=== PATIENT | female | born 1950 | race Caucasian/White ===

== ENCOUNTER → 2020-03-08 10:15 | Outpatient (BNVA) | payer MEDICARE, SELFPAY | PROVIDERS: Family Provider Family Medicine; PCP Family Medicine; Visit Provider Registered Nurse | DX: E03.9 Hypothyroidism, unspecified (principal); E78.2 Mixed hyperlipidemia; I10 Essential (primary) hypertension; Z79.899 Other long term (current) drug therapy | CPT/HCPCS: 80053; 80061; 84443; 85025 ==

== ENCOUNTER 2020-04-18 02:10 | Emergency (ER) | payer MEDICARE, OTHER, SELFPAY ==
[2020-04-18 02:11] VITALS: BP 144/87; PULSE 106; RESP 16; TEMP 36.6; O2SAT 93; BMI 34.0
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
[2020-04-18 02:23] VITALS: RESP 16
[2020-04-18] MEDS: morphine 4 mg/mL SDV 1 mL IVP (02:23)
[2020-04-18] MEDS: ondansetron 2 mg/ML SDV 2 mL 4 MG IVP (02:24)
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
[2020-04-18 03:50] LABS: Basophils # 0.1 10^3/uL (0.0-0.1); Basophils % 0.2 %; Eosinophils % 0.2 %; Hemoglobin 14.7 g/dL (11.5-15.3); Lymphocytes # 3.7 10^3/uL (0.8-4.8); Lymphocytes % 16.5 %; Mean Corpuscular HGB Conc 33.4 g/dL (30.0-36.0); Mean Corpuscular Hemoglobin 30.3 pg (28.0-34.0); Mean Corpuscular Volume 90.7 fL (81-99); Mean Platelet Volume 11.1 fL (7.4-10.4); Monocytes # 1.5 10^3/uL (0.2-0.9); Monocytes % 6.8 %; Neutrophils # 16.99 10^3/uL (1.8-7.7); Neutrophils % 75.9 %; Nucleated Red Blood Cells % 0 %; Platelet Count 425 10^3/cmm (130-400); Red Blood Count 4.85 10^6/uL (4.1-5.3); Red Cell Distribution Width 12.7 % (12.1-15.1); White Blood Count 22.4 10^3/uL (4.0-10.0)
[2020-04-18] MEDS: iohexol 300 mg/mL 100 mL Btl IV (03:59)
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
[2020-04-18 04:14] VITALS: BP 188/103; O2SAT 95
[2020-04-18 04:19] LABS: Alanine Aminotransferase 22 U/L (0-33); Albumin Level 4.3 g/dL (3.5-5.2); Alkaline Phosphatase 92 IU/L (35-105); Blood Urea Nitrogen 14 mg/dL (8-23); Calcium 9.2 mg/dL (8.5-10.5); Carbon Dioxide 20 mmol/L (22-29); Chloride 100 mmol/L (98-107); Globulin 3.4 g/dL (1.3-4.6); Glomerular Filtration Rate 71.3 mL/min (90-130); Glucose 150 mg/dL (65-115); Lipase 40 U/L (13-60); Osmolality Calculated 277 mOsm/kg (285-295); Sodium 134 mmol/L (136-145); Total Bilirubin 0.5 mg/dL (0.15-1.2); Total Protein 7.7 g/dL (6.6-8.7)
[2020-04-18 04:59] LABS: Anion Gap 18.1 (5-19)
[2020-04-18 05:00] LABS: Aspartate Amino Transferase 29 U/L (0-32); Potassium 4.1 mmol/L (3.5-5.1)
[2020-04-18] MEDS: tetanus-dipt-pertussis 0.5 mL SDV IM (05:11)
[2020-04-18 05:13] VITALS: BP 111/69
--- NOTE | 2020-04-19 14:33 | PC.SOCIAL ---
Addendum entered by Roselia Blackwell RN 04/19/20 14:34: Please note records were faxed to [phone] number provided by clinic with confirmation that it was received successfully. Original Note: Spoke with Dr Camp office regarding referral. They will call patient with appointment. Called and updated patient of this as well.
--- NOTE | 2020-04-23 10:16 | DCPLANNER ---
Patient has a follow up appointment scheduled for Sunday, April 24, 2020 at 4:45. Clinic will call patient with appointment information.
--- NOTE | 2020-04-29 15:21 | DCPLANNER ---
Patient did attend appointment scheduled for 04.26.[address] Cisneros.
== END 2020-04-18 05:21 | disposition home or self-care (01) ==
PROVIDERS: Emergency Medicine; Emergency Provider Nurse Practitioner Family; PCP Family Medicine
DX: S02.2XXA Fracture of nasal bones, initial encounter for closed fracture (principal); I10 Essential (primary) hypertension; Z23 Encounter for immunization; Y04.2XXA Assault by strike against or bumped into by another person, initial encounter
CPT/HCPCS: 12345; 70450; 70486; 72125; 74177; 80053; 83690; 85025; 90471; 90715; 96374; 96375; 99282; 99283; J2270; J2405; Q9967

== ENCOUNTER → 2020-04-21 10:48 | Outpatient (BNVA) | payer OTHER, MEDICARE, SELFPAY | PROVIDERS: PCP Family Medicine; Referring Provider Nurse Practitioner Family; Visit Provider Nurse Practitioner Family | DX: S01.512D Laceration without foreign body of oral cavity, subsequent encounter; Y09 Assault by unspecified means; Z01.89 Encounter for other specified special examinations | CPT/HCPCS: 80074; 87806 ==

== ENCOUNTER 2020-06-03 11:41 | Outpatient (CLI) | payer MEDICARE, SELFPAY ==
--- NOTE | 2020-06-03 11:50 | MM_ITS ---
WS: [id number] DIAGNOSTIC LEFT DIGITAL MAMMOGRAM WITH CAD HISTORY: HX OF BREAST CANCER, 12 month follow-up COMPARISON: 05/08/2019 and 04/16/2019 and 04/09/2017 Technique: CC, MLO and ML views. Breast composition: There are scattered areas of fibroglandular density. Biopsy clip near the 12:00 axis of the LEFT breast has been removed since the prior study from the lumpectomy changes. No increa sing mass of soft tissue. Normal postsurgical changes. MM/[place] [id number] IMPRESSION: BI-RADS: 2-Benign FOLLOW UP: 1 Year Follow-up
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
== END 2020-06-03 11:42 | disposition home or self-care (01) ==
LOC: RADSHAW 11:48
PROVIDERS: PCP Family Medicine; Visit Provider Internal Medicine Medical Oncology
DX: Z85.3 Personal history of malignant neoplasm of breast (principal); Z92.21 Personal history of antineoplastic chemotherapy; Z90.11 Acquired absence of right breast and nipple; Z92.23 Personal history of estrogen therapy
CPT/HCPCS: 77065; 87806; 99214

== ENCOUNTER 2020-06-03 11:51 | Outpatient (CLI) | payer MEDICARE, SELFPAY ==
[2020-06-03 14:50] LABS: HIV 1 & 2 Antibody Non-Reactive (Non-Reactiv); HIV 1 & 2 Antigen Non-Reactive (Non-Reactiv)
== END 2020-06-03 11:52 | disposition home or self-care (01) ==
LOC: LAB 11:53
PROVIDERS: PCP Family Medicine; Visit Provider Nurse Practitioner Family
DX: Z77.21 Contact with and (suspected) exposure to potentially hazardous body fluids (principal)
CPT/HCPCS: 87806

== ENCOUNTER → 2020-07-08 09:44 | Outpatient (BNVA) | payer MEDICARE, SELFPAY | PROVIDERS: PCP Family Medicine; Visit Provider Nurse Practitioner Family | DX: Z01.89 Encounter for other specified special examinations (principal); Z20.828 Contact with and (suspected) exposure to other viral communicable diseases; Z20.2 Contact with and (suspected) exposure to infections with a predominantly sexual mode of transmission | CPT/HCPCS: 86705; 86706; 86709; 86803; 87340; 87806 ==

== ENCOUNTER → 2020-08-10 10:48 | Outpatient (BNVA) | payer MEDICARE, SELFPAY | PROVIDERS: PCP Family Medicine; Visit Provider Registered Nurse | DX: Z20.828 Contact with and (suspected) exposure to other viral communicable diseases (principal); J06.9 Acute upper respiratory infection, unspecified | CPT/HCPCS: 87635 ==

== ENCOUNTER → 2021-05-18 09:57 | Outpatient (BNVA) | payer MEDICARE, SELFPAY | PROVIDERS: PCP Registered Nurse; Visit Provider Registered Nurse | DX: G47.34 Idiopathic sleep related nonobstructive alveolar hypoventilation (principal); E03.9 Hypothyroidism, unspecified; E78.5 Hyperlipidemia, unspecified; I10 Essential (primary) hypertension; R25.1 Tremor, unspecified | CPT/HCPCS: 80053; 80061; 84443; 85025 ==

== ENCOUNTER 2021-06-06 09:33 | Outpatient (CLI) | payer MEDICARE, SELFPAY ==
--- NOTE | 2021-06-06 09:44 | MM_ITS ---
WS: [id number] DIAGNOSTIC LEFT DIGITAL MAMMOGRAM WITH CAD HISTORY: HX OF BREAST CA;RT MASTECTOMY COMPARISON: 06/03/2020, 04/16/2019 Technique: CC, MLO and ML views. Breast composition: There are scattered areas of fibroglandular density. No suspicious mass or calci fication. MM/[id number] IMPRESSION: BI-RADS: 1-Negative FOLLOW UP: 1 Year Follow-up
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
== END 2021-06-06 09:34 | disposition home or self-care (01) ==
LOC: ONCMED 09:38
PROVIDERS: PCP Registered Nurse; Visit Provider Internal Medicine Medical Oncology
DX: C50.811 Malignant neoplasm of overlapping sites of right female breast (principal); Z17.0 Estrogen receptor positive status [ER+]; D05.12 Intraductal carcinoma in situ of left breast; Z90.11 Acquired absence of right breast and nipple; Z79.811 Long term (current) use of aromatase inhibitors; I10 Essential (primary) hypertension; E78.5 Hyperlipidemia, unspecified; E11.9 Type 2 diabetes mellitus without complications; Z79.899 Other long term (current) drug therapy; Z92.21 Personal history of antineoplastic chemotherapy
CPT/HCPCS: 77065; 99214

== ENCOUNTER → 2021-06-17 00:01 | Outpatient (BNVA) | payer MEDICARE, SELFPAY | PROVIDERS: PCP Registered Nurse; Visit Provider Registered Nurse | DX: E11.9 Type 2 diabetes mellitus without complications (principal); Z23 Encounter for immunization; G47.30 Sleep apnea, unspecified; R73.9 Hyperglycemia, unspecified; E66.9 Obesity, unspecified; Z71.3 Dietary counseling and surveillance | CPT/HCPCS: 83036 ==

== ENCOUNTER → 2021-11-15 10:21 | Outpatient (BNVA) | payer MEDICARE, SELFPAY | PROVIDERS: PCP Family Medicine; Visit Provider Family Medicine | DX: E11.9 Type 2 diabetes mellitus without complications (principal); I49.9 Cardiac arrhythmia, unspecified | CPT/HCPCS: 83036 ==

== ENCOUNTER 2022-01-02 20:00 | Outpatient (CLI) | payer MEDICARE, SELFPAY | END 2022-01-02 20:01 | disposition home or self-care (01) | LOC: SLEEP 01-03 08:44 | PROVIDERS: PCP Family Medicine; Visit Provider Family Medicine | DX: E66.9 Obesity, unspecified (principal); R06.83 Snoring; G47.61 Periodic limb movement disorder | CPT/HCPCS: 95810 ==

== ENCOUNTER → 2022-02-21 10:00 | Outpatient (BNVA) | payer MEDICARE, SELFPAY | PROVIDERS: PCP Family Medicine; Visit Provider Family Medicine | DX: E11.9 Type 2 diabetes mellitus without complications (principal) | CPT/HCPCS: 83036 ==

== ENCOUNTER → 2022-05-23 14:29 | Outpatient (BNVA) | payer MEDICARE, SELFPAY | PROVIDERS: PCP Family Medicine; Visit Provider Family Medicine | DX: Z00.00 Encounter for general adult medical examination without abnormal findings (principal); E11.9 Type 2 diabetes mellitus without complications; E78.5 Hyperlipidemia, unspecified; E03.9 Hypothyroidism, unspecified; Z12.31 Encounter for screening mammogram for malignant neoplasm of breast | CPT/HCPCS: 80053; 80061; 84443 ==

== ENCOUNTER → 2022-05-31 12:05 | Outpatient (BNVA) | payer MEDICARE, SELFPAY | PROVIDERS: PCP Family Medicine; Visit Provider Family Medicine | DX: Z00.00 Encounter for general adult medical examination without abnormal findings (principal) | CPT/HCPCS: 82270 ==

== ENCOUNTER 2022-06-19 13:23 | Outpatient (CLI) | payer MEDICARE, SELFPAY ==
--- NOTE | 2022-06-19 13:29 | MM_ITS ---
WS: [id number] LEFT 3D TOMOSYNTHESIS DIGITAL MAMMOGRAPHY WITH CAD CLINICAL INFORMATION: HX OF BREAST CA COMPARISON: June 06, 2021 TECHNIQUE: 3 views of the left breast were obtained. FINDINGS: Scattered fibroglandular densities of the left breast. Prior LEFT lumpectomy near the 12:00 position. No suspicious focal mass, asymmetry, calcifications, or architectural distortion. No evidence of shannon gnancy. MM/[id number] IMPRESSION: BI-RADS: 2-Benign FOLLOW UP: 1 Year Follow-up Recommend return to annual diagnostic mammography.
== END 2022-06-19 13:24 | disposition home or self-care (01) ==
LOC: RAD 13:24
PROVIDERS: PCP Family Medicine; Visit Provider Family Medicine
DX: Z85.3 Personal history of malignant neoplasm of breast (principal)
CPT/HCPCS: 77061

== ENCOUNTER → 2022-11-29 09:15 | Outpatient (BNVA) | payer MEDICARE, SELFPAY | PROVIDERS: PCP Family Medicine; Visit Provider Family Medicine | DX: E11.9 Type 2 diabetes mellitus without complications (principal); E78.5 Hyperlipidemia, unspecified; I10 Essential (primary) hypertension; E03.9 Hypothyroidism, unspecified | CPT/HCPCS: 80053; 80061; 83036; 84443; 85025 ==